=== PATIENT | female | born 1995 | race Caucasian/White ===

== ENCOUNTER 2021-03-27 08:05 | Outpatient (CLI) | payer OTHER | END 2021-03-27 09:10 | disposition home or self-care (01) | LOC: PRENATAL 08:05 | PROVIDERS: ATTEND Obstetrics & Gynecology Maternal & Fetal Medicine | DX: O35.0XX0 Maternal care for (suspected) central nervous system malformation in fetus, not applicable or unspecified (principal); O34.40 Maternal care for other abnormalities of cervix, unspecified trimester ==

== ENCOUNTER 2021-06-16 14:55 | Outpatient (CLI) | payer OTHER | END 2021-06-16 16:12 | disposition home or self-care (01) | LOC: PRENATAL 14:55 | PROVIDERS: ATTEND Obstetrics & Gynecology Maternal & Fetal Medicine | DX: O35.0XX0 Maternal care for (suspected) central nervous system malformation in fetus, not applicable or unspecified (principal); O26.849 Uterine size-date discrepancy, unspecified trimester; O36.8199 Decreased fetal movements, unspecified trimester, other fetus; Z3A.32 32 weeks gestation of pregnancy ==

== ENCOUNTER 2021-07-01 12:08 | Outpatient (CLI) | payer OTHER ==
[2021-07-01] MEDS ORDERED: PRENATAL TABLE1 EAC3 PO (14:30)
== END 2021-07-02 16:48 | disposition home or self-care (01) ==
LOC: OBS/DEL 12:08
PROVIDERS: ATTEND Student in an Organized Health Care Education/Training Program
DX: O47.03 False labor before 37 completed weeks of gestation, third trimester (principal); Z3A.34 34 weeks gestation of pregnancy; Z91.013 Allergy to seafood; Z20.822 Contact with and (suspected) exposure to COVID-19

== ENCOUNTER 2021-07-27 19:45 | Inpatient (IN) | payer OTHER ==
[~2021-07-27] VITALS: Ht 152.4 cm; Wt 74.4 kg
[~2021-07-27 19:45] MED LIST: PRENATAL TABLE1 EAC3 PO
[2021-07-27] MEDS ORDERED: PEPCID AC20 MG PO (20:06)
== END 2021-07-30 14:51 | disposition home or self-care (01) | DRG 807 ==
LOC: OB/GYN 19:45 → LDR 19:45 → OB/GYN 07-28 14:28
PROVIDERS: ADMIT Obstetrics & Gynecology; ATTEND Obstetrics & Gynecology
PROC: 10E0XZZ Delivery of Products of Conception, External Approach (ICD-10-PCS; principal; 2021-07-28)
PROC: 4A1HXFZ Monitoring of Products of Conception, Cardiac Rhythm, External Approach (ICD-10-PCS; 2021-07-28)
PROC: 10907ZC Drainage of Amniotic Fluid, Therapeutic from Products of Conception, Via Natural or Artificial Opening (ICD-10-PCS; 2021-07-28)
DX: O80 Encounter for full-term uncomplicated delivery (principal); Z37.0 Single live birth; Z3A.38 38 weeks gestation of pregnancy